=== PATIENT | female | born 1985 | race American Indian/Alaskan Native ===

== ENCOUNTER 2018-02-13 16:11 | Emergency (ER) | payer MEDICAID, OTHER ==
[2018-02-13 17:00] VITALS: RESP 18; TEMP 98.2
--- NOTE | 2018-02-13 20:00 | ED PDOC ---
Arrival/HPI - General Chief Complaint: Medical Clearance Time Seen by Provider: 02/13/18 18:07 Historian: Patient - History of Present Illness Narrative History of Present Illness (Text): 02/13/18 19:55 32-year-old female presents today with left-sided breast pain. Patient states she feels a lump along the left side of the breast. Patient states in the past she was told she had a breast cyst. Patient states the pain has returned. She denies chest pain or shortness of breath. Denies fevers or chills. No nausea vomiting diarrhea or constipation. Patient states her sister who is the same age has breast cancer currently. Patient states 5 years ago she did have a mammogram. Patient denies dizziness or weakness. No medications have been taken for pain at home. Patient denies nipple discharge. No other complaints. Past Medical History - Provider Review Nursing Documentation Reviewed: Yes - Travel History Have you recently traveled outside [place] w/in the past 3 mons?: No - Cardiac Hx Cardiac Disorders: Yes Hx Heart Murmur: Yes (Congenital) - Pulmonary Hx Respiratory Disorders: No - HEENT Hx HEENT Disorder: No - Renal Hx Renal Disorder: No - Endocrine/Metabolic Hx Endocrine Disorders: No - Hematological/Oncological Hx Blood Disorders: No - Integumentary Hx Dermatological Disorder: No - Musculoskeletal/Rheumatological Hx Musculoskeletal Disorders: Yes Other/Comment: Right Foot Injury - Gastrointestinal Hx Gastrointestinal Disorders: No - Genitourinary/Gynecological Hx Genitourinary Disorders: No - Psychiatric Hx Psychophysiologic Disorder: No Hx Substance Use: No - Anesthesia Hx Anesthesia: No Family/Social History - Physician Review Nursing Documentation Reviewed: Yes Family/Social History: Unknown Family HX Smoking Status: Current Some Days Smoker Hx Alcohol Use: Yes Frequency of alcohol use: Socially Hx Substance Use: No Allergies/Home Meds Allergies/Adverse Reactions: Allergies No Known Allergies Allergy (Verified 02/13/18 16:52) Review of Systems - Review of Systems Constitutional: absent: Fatigue, Fevers Respiratory: absent: SOB, Cough Cardiovascular: absent: Chest Pain, Palpitations Gastrointestinal: absent: Abdominal Pain, Nausea, Vomiting Genitourinary Female: Other (left breast pain, left breast lump). absent: Dysuria, Frequency, Hematuria, Vaginal Bleeding, Vaginal Discharge Skin: absent: Rash, Pruritis Neurological: absent: Headache, Dizziness Psychiatric: absent: Anxiety, Depression, Suicidal Ideation Physical Exam Vital Signs Reviewed: Yes Vital Signs Temp Pulse Resp BP Pulse Ox 02/13/18 16:54 98.2 F 70 18 118/79 96 Temperature: Afebrile Blood Pressure: Normal Pulse: Regular Respiratory Rate: Normal Appearance: Positive for: Well-Appearing, Non-Toxic, Comfortable Pain Distress: None Mental Status: Positive for: Alert and Oriented X 3 - Systems Exam Head: Present: Atraumatic Mouth: Present: Moist Mucous Membranes Neck: Present: Normal Range of Motion Respiratory/Chest: Present: Clear to Auscultation, Good Air Exchange. No: Respiratory Distress, Accessory Muscle Use Cardiovascular: Present: Regular Rate and Rhythm, Normal S1, S2. No: Murmurs Abdomen: No: Tenderness, Distention, Peritoneal Signs, Rebound, Guarding Breast/Axillary: Present: Masses, Symmetrical, Tender to Palpation (left breast ; there is a tender mobile mass noted to the upper outer quadrant of the breast. no erythema; no swelling. no nipple discharge. ). No: Axillary Lymphad , Erythema, Fluctuance, Nipple Discharge, Swelling Neurological: Present: GCS=15 Skin: Present: Warm, Dry, Normal Color. No: Rashes Psychiatric: Present: Alert, Oriented x 3 Medical Decision Making ED Course and Treatment: 02/13/18 19:57 32-year-old female with left breast pain and painful breast mass. No signs of infection no erythema. Minimal tenderness. Mobile quarter sized mass noted to the upper outer quadrant Ultrasound of the left breast:FINDINGS: Solid nodules: There is a lobulated solid nodule with irregular margins measuring 9 mm, at 12:00 1 cm from the nipple. Cystic masses: There is a benign-appearing 7 mm cyst at 12:00, 2 cm from the nipple. There is a benign-appearing 1 cm cyst at 1:00, 2 cm from the nipple. Architectural distortion: None. Acoustical shadowing: None. Skin thickening: None. Axillary adenopathy: None. IMPRESSION: Solid nodule needing further evaluation as above. Patient was advised that she must follow-up with a primary care physician/HEALTH AND SAFETY INSPECTOR or breast specialist because the patient will need a mammogram of her breasts for further evaluation of solid nodule. Patient was advised to take Motrin for pain and return immediately if symptoms worsen persist or if new concerning symptoms develop. I've stressed the importance of immediate follow-up with the specialist and need for immediate mammogram as patient has significant risk factors for breast cancer with irregular breast mass. Patient verbalizes understanding of discharge instructions and need for immediate followup. all aspects of this case were discussed the attending of record. Impression: Breast mass Motrin every 6 hours as needed for pain Follow up with a primary care physician within the next 2 days Follow-up with bank secrecy act officer or the next 2 days Follow-up the breast specialist within the next 2 days Return immediately if symptoms worsen or persist or if new concerning symptoms develop - RAD Interpretation Radiology Orders: 02/13/18 18:08 BREAST LIMITED LT [US] Stat - Medication Orders Current Medication Orders: Discontinued Medications Ibuprofen (Motrin Tab) 400 mg PO STAT STA Stop: 02/13/18 18:10 Last Admin: 02/13/18 18:54 Dose: 400 mg MAR Pain/Vitals Document 02/13/18 18:54 EQ (Rec: 02/13/18 18:54 EQ [id number]) Pain Reassessment Is This A Pain ReAssessment? No Sleep Is patient sleeping during reassessment? No Presence of Pain Presence of Pain Yes Disposition/Present on Arrival - Present on Arrival Any Indicators Present on Arrival: No History of DVT/PE: No History of Uncontrolled Diabetes: No Urinary Catheter: No History of Decub. Ulcer: No History Surgical Site Infection Following: None - Disposition Have Diagnosis and Disposition been Completed?: Yes Diagnosis: Breast mass Disposition: HOME/ ROUTINE Disposition Time: 20:27 Patient Plan: Discharge Patient Problems: Current Active Problems Problem Status Onset Breast mass Acute Condition: GOOD Discharge Instructions (ExitCare): Breast Ultrasound Additional Instructions: Motrin every 6 hours as needed for pain Follow up with a primary care physician within the next 2 days Follow-up with bank secrecy act officer or the next 2 days Follow-up the breast specialist within the next 2 days Return immediately if symptoms worsen or persist or if new concerning symptoms develop Prescriptions: Ibuprofen [Motrin Tab] 400 mg PO Q6H PRN #20 tab PRN Reason: Pain, Mild (1-3) Referrals: [employer] [facility] [Outside] - Follow up with primary [facility] [place] [Outside] - [facility] with [facility] [Outside] - Follow up with primary Ramu Silva MD [Staff Provider] - Follow up with primary Varun Ramirez MD [Staff Provider] - Follow up with primary Forms: [facility] (Amharic), WORK NOTE
[2018-02-13 21:34] VITALS: BP 122/76; PULSE 87; O2SAT 100
--- NOTE | 2018-02-14 13:08 | US ---
HISTORY: Left breast lump COMPARISON: None TECHNIQUE: Targeted high-resolution ultrasound of the left breast was performed with real-time linear scanner. FINDINGS: LEFT BREAST: There is dense background echotexture. At 12 o'clock position 7 cm from the nipple, there is a 0.9 x 0.5 x 0.7 cm well-circumscribed ovoid homogeneously hypoechoic nodule with slightly irregular margins, wider than taller with mild peripheral increased vascularity color Doppler imaging. At 2 o'clock position 2 cm from the nipple, there is a 0.7 x 0.4 x 0.7 cm cyst. At 1 o'clock position 2 cm from the nipple, there is a 1.0 x 0.5 x 1.0 cm simple cyst. IMPRESSION: 0.9 x 0.5 x 0.7 cm well-circumscribed ovoid nodule with slightly irregular margin and mild peripheral increased vascularity at 12 o'clock position 7 cm from the nipple at the site of clinically palpable lump. Ultrasound-guided core biopsy is recommended to establish histology. BIRAD: BIRADS 4 Suspicious finding Recommendation: Biopsy is recommended. A preliminary report was provided by [facility].
== END 2018-02-13 21:00 | disposition home or self-care (01) ==
LOC: MERGE 16:11 → ED 16:11
DX: N63.20 Unspecified lump in the left breast, unspecified quadrant (principal); F17.200 Nicotine dependence, unspecified, uncomplicated; Z80.3 Family history of malignant neoplasm of breast